=== PATIENT | female | born 1970 | race Caucasian/White ===

== ENCOUNTER 2017-01-25 20:53 | Emergency (ER) | payer OTHER ==
[~2017-01-25] VITALS: Ht 162.6 cm; Wt 49.9 kg
[~2017-01-25 20:53] MED LIST: ALBUTEROL17 GM; ALBUTEROL17 GM IH; ALPRAZOLAM; ALPRAZOLAM PO; ATENOLOL; ATENOLOL PO; BACTRIM DS TABL1 TAB PO; CLONIDINE; CLONIDINE PO; DICYCLOMINE HCL20 MG PO; HCTZ; HCTZ PO; METHADOSE40 M1 PO; RHINOCORT AQUA8.6 GM; VICODIN 5/500 T1 TAB PO; ZOFRAN ODT4 MG SL
== END 2017-01-25 22:50 | disposition home or self-care (01) ==
LOC: CED 20:53 → CFTX 21:50 → CED 22:50
DX: B85.2 Pediculosis, unspecified (principal); I10 Essential (primary) hypertension; F17.210 Nicotine dependence, cigarettes, uncomplicated
CPT/HCPCS: 99282